=== PATIENT | male | born 1975 | race African-American/Black ===

== ENCOUNTER 2025-06-02 09:58 | Day surgery (SDC) | payer OTHER ==
--- NOTE | 2025-05-23 11:05 | ELECTROCARDIOGRAPH REPORT ---
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 AZUCENA Vazquez Measurements Intervals [place] Rate: 60 P: 44 UT: 131 QRS: 78 QRSD: 90 T: -5 QT: 465 QTc: 465 Interpretive Statements Sinus rhythm Borderline repolarization abnormality Electronically Signed On 05-23-2025 12:31:[address] AZUCENA Vazquez Please click the below link to view image of tracing.
[2025-05-23 11:29] LABS: MEAN PLATELET VOLUME 9.1 FL (7.4-10.4); PRE OP HEMATOCRIT 44.0 % (42.0-52.0); PRE OP HEMOGLOBIN 15.1 g/dL (14.0-17.9); PRE OP PLATELET COUNT 191 X10'3 (140-440); PRE OP WHITE BLOOD COUNT 6.8 10'3 (4.8-10.8); RED CELL DISTRIBUTION WIDTH 14.6 % (11.5-14.5)
[2025-05-23 11:41] LABS: CREATININE 1.37 MG/DL (0.60-1.10); PRE OP ALT 54 U/L (30-65); PRE OP ANION GAP 9 (8-16); PRE OP BILIRUB, TOTAL 1.2 MG/DL (0.0-1.0); PRE OP GLUCOSE 113 MG/DL (70-104); PRE OP POTASSIUM 3.5 MMOL/L (3.4-5.1); PRE OP SODIUM 142 MMOL/L (135-145); TOTAL CARBON DIOXIDE 27.3 MMOL/L (24-32); eGFR 67 ML/MIN
[2025-05-23 11:44] LABS: PRE OP AST 26 U/L (10-37)
[~2025-06-02] VITALS: Ht 180.3 cm; Wt 125.1 kg
[2025-06-02] VITALS (7 sets, daily range): BP systolic 151–172; BP diastolic 83–100; PULSE 52–61; RESP 12–16; TEMP 97.6; O2SAT 92–98
[2025-06-02] MEDS: Cefazolin 3 GM/100ML NS IVPB 100 ML IV ONE (05:30)
[2025-06-02] MEDS: DOCUMENT DATE & TIME OF BETA-BLOCKER PO ONE (08:00)
[~2025-06-02 09:58] MED LIST: ATOR20TA66 PO; CARV25TA2 PO; CYCL-1 PO; HYDR25TA90 PO; LOSA1TAB41 PO
[2025-06-02] MEDS ORDERED: LIDOcaine 1% (10mg/ml)w/preservative inj. 20ml MDV ONE (10:22)
[2025-06-02] MEDS ORDERED: BUPIVAcaine/PF 2.5mg/ml (0.25%) 10ml vial ONE (10:22)
[2025-06-02] MEDS: ringers solution, lacted 1,000 ML IV SCH (10:26)
[2025-06-02] MEDS ORDERED: hydrALAZINE 20mg/ml inj. IV PRN ×2 (10:45→13:15)
[2025-06-02] MEDS ORDERED: morphine 4 MG/ML inj SYRINge IV PRN ×2 (10:45→13:15)
[2025-06-02] MEDS ORDERED: ondansetron/PF 4mg/2ml inj IV PRN ×2 (10:45→13:15)
[2025-06-02] MEDS ORDERED: fentaNYL/PF 50MCG/1 ML 2ML syringe IV PRN ×2 (10:45)
[2025-06-02] MEDS ORDERED: labetalol 20mg/4ml (5mg/ml) syringe IV PRN ×2 (10:45→13:15)
[2025-06-02] MEDS ORDERED: ringers solution, lacted 1,000 ML IV SCH ×2 (10:45→13:15)
[2025-06-02] MEDS ORDERED: fentaNYL/PF 50MCG/1 ML 2ML syringe ONE (12:04)
[2025-06-02] MEDS ORDERED: midazolam 1 mg/ML 2ml injection ONE (12:46)
[2025-06-02] MEDS ORDERED: dexamethasone sod phosphate 4mg/ml inj. ONE (12:46)
[2025-06-02] MEDS ORDERED: LIDOcaine 2% (20mg/ml) 5ml vial ONE (12:46)
[2025-06-02] MEDS ORDERED: propofol inj 20 ML IV ONE (12:46)
[2025-06-02] MEDS ORDERED: ondansetron/PF 4mg/2ml inj ONE (12:46)
[2025-06-02] MEDS ORDERED: HYDROmorphone/PF 0.2 MG/ML SYRINGE IV PRN ×2 (13:15)
[2025-06-02] MEDS: acetaminophen 1,000mg/100ml IV 100 ML IV PRN (13:40)
[2025-06-02] MEDS: HYDROcodone/acetaminophen 5mg/325mg tablet PO PRN (14:07)
--- NOTE | 2025-06-02 17:41 | OPERATIVE REPORT ---
Operative Report Providers to CC CC: ECTOR SIU MD ~ Date of Procedure: Jun 02, 2025 Pre-Operative Diagnosis: Subcutaneous tumor of the scalp Post-Operative Diagnosis 3 cm subcutaneous tumor of the scalp-left temporal area Procedure Performed Excision of left scalp subcutaneous tumor-3 cm Surgeon: Ector Siu MD FACS Mill Representative None Anesthesiologist: Sandra Banuelos Type of Anesthesia: General Findings: Partially encapsulated 3 cm fatty tumor in the subcutaneous space of the scalp in the area of the left temporal region Wound Class I Complications None Prosthetics\Implants used: None Estimated Blood Loss: Minimal Specimen Removed: 3 cm subcutaneous tumor of the left temporal region scalp Description of Procedure: Patient was brought to the operating room and identified by the nursing staff and the attending physician. Patient was placed supine and general anesthesia was induced. The left temporoparietal area of the scalp was prepped and draped in the standard sterile fashion, centered at the site of a visible soft tissue tumor. Local anesthetic was infiltrated deep to a previous surgical scar where this had been previously removed 10 years ago. Incision was made with a knife and deepened down through the layers until the subdermal space was encountered. There was a fatty tumor that was encountered. This was densely adherent to the underlying galea layer. The soft tissue tumor was mobilized away from this layer and completely excised. Lesion measured 3 cm in diameter. The wound was irrigated and hemostasis assured. Quilting sutures using 3-0 Vicryl were used to decrease the space and the incision was closed in layers with absorbable sutures and dressed with Dermabond. Pressure dressing was applied using a turban. Patient was awakened and taken to the postanesthesia care unit in stable condition. Counts repoted as correct: Yes ECTOR SIU MD Jun 02, 2025 17:41
== END 2025-06-02 14:14 | disposition home or self-care (01) ==
LOC: PAS 09:58
PROVIDERS: ATTEND Surgery
DX: D17.0 Benign lipomatous neoplasm of skin and subcutaneous tissue of head, face and neck (principal); I10 Essential (primary) hypertension; G47.33 Obstructive sleep apnea (adult) (pediatric); E66.9 Obesity, unspecified; E78.5 Hyperlipidemia, unspecified; Z79.899 Other long term (current) drug therapy; Z98.890 Other specified postprocedural states
CPT/HCPCS: 21012; 36415; 80053; 82948; 85025; 93005; J0131; J0690; J1100; J2003; J2250; J2405; J2704; J3010; J3490; J7030; J7120; Z7506; Z7508; Z7512; A4215; A4618; A7000